=== PATIENT | female | born 1960 | race Caucasian/White ===

== ENCOUNTER 2018-01-25 13:35 | Emergency (ER) | payer OTHER ==
--- NOTE | 2018-01-25 14:02 | EDM.PDOC ---
ED HPI GENERAL MEDICAL PROBLEM - General Chief Complaint: Skin Complaint Stated Complaint: RASH ON BACK Time Seen by Provider: 01/25/18 13:37 - History of Present Illness INITIAL COMMENTS - FREE TEXT/NARRATIVE: HISTORY AND PHYSICAL: History of present illness: The patient is a 57-year-old female who follows at [facility] with Dr. Coto and presents with a history of being diagnosed with shingles this week and started on valacylovir and also given tramadol for pain at the [employer] and presents today with complaints of persistent pain as well as some new right earache and sore throat. Her rash is still active and there are no scabs and she St. is exquisitely painful and the tramadol is not helping. She has not had fever chills cough runny nose sore throat vomiting or diarrhea and denies . She states compliance with her antiviral medication. Review of systems: As per history of present illness and below otherwise all systems reviewed and negative. Past medical history: As per history of present illness and as reviewed below otherwise noncontributory. Surgical history: As per history of present illness and as reviewed below otherwise noncontributory. Social history: No reported history of drug or alcohol abuse. Family history: As per history of present illness and as reviewed below otherwise noncontributory. Physical exam: General: Well-developed well-nourished female who is nontoxic and vital signs are noted by me. HEENT: Atraumatic, normocephalic, negative for conjunctival pallor or scleral icterus, mucous membranes moist, throat slightly enlarged and reddened tonsils bilaterally and posterior oropharynx reddened with some punctate exudates seen right greater than left but uvula is midline, neck supple, nontender, trachea midline. TMs are slightly dull bilaterally and there is no evidence of any erythema discomfort with exam or mastoid tenderness. There is no cervical adenopathy or nuchal rigidity Lungs: Clear to auscultation, breath sounds equal bilaterally, chest nontender. Please see skin exam below. There is no wheezing or stridor Heart: S1S2, regular rate and rhythm no overt murmurs Abdomen: Soft, nondistended, nontender. NABS Pelvis: Deferred Genitourinary: Deferred. Rectal: Deferred. Extremities: Atraumatic full range of motion without defects or deficits Neurovascular unremarkable. Neuro: Awake, alert, oriented. Cranial nerves II through XII unremarkable. Cerebellum unremarkable. Motor and sensory unremarkable throughout. Exam nonfocal. Skin: At the anterior chest wall on the right as well is in the axillary area and in the right posterior scapular area there is a vesicular-like rash seen with an erythematous base follows dermatomes T1 and T2. It does not cross the midline is tender to palpation and there are no scabs seen. Diagnostics: Rapid strep Therapeutics: Patient drove here and needs to drive home so I will give her a prescription or different pain medications to try. Impression: Right chest wall zoster with persistent pain Definitive disposition and diagnosis as appropriate pending reevaluation and review of above Treatments RELATIONS LIAISON: Reports: NSAIDS skin rash Pain Score (Numeric/FACES): 8 - Related Data Allergies Allergy/AdvReac Type Severity Reaction Status Date / Time acetaminophen [From Percocet] Allergy Vomiting Verified 01/25/18 13:49 oxycodone [From Percocet] Allergy Vomiting Verified 01/25/18 13:49 Penicillins Allergy Rash Verified 01/25/18 13:49 Home Meds: Home Meds Famciclovir 1 tab PO TID 01/25/18 [History] Venlafaxine [Effexor XR] 1 tab PO DAILY 01/25/18 [History] traMADol HCl [Tramadol HCl] 1 tab PO Q8HR PRN 01/25/18 [History] Social & Family History - Tobacco Use Smoking Status *Q: Never Smoker - Recreational Drug Use Recreational Drug Use: No ED ROS GENERAL - Review of Systems Review Of Systems: ROS reveals no pertinent complaints other than HPI. ED EXAM, SKIN/RASH Exam: See Below (See dictation) Course - Vital Signs Last Recorded V/S: Last Vital Signs Temp 36.1 C 01/25/18 13:35 Pulse 100 01/25/18 13:35 Resp 18 01/25/18 13:35 BP 113/74 01/25/18 13:35 Pulse Ox 97 01/25/18 13:35 - Orders/Labs/Meds Orders: Active Orders 24 hr Category Date Time Status CULTURE STREP A CONFIRMATION [RM] Stat Lab 01/25/18 14:07 Results STREP SCRN A RAPID W CULT CONF [RM] Stat Lab 01/25/18 14:07 Ordered Departure - Departure Time of Disposition: 14:27 Disposition: Home, Self-Care 01 Condition: Good Clinical Impression: Acute pain associated with herpes zoster - Discharge Information Referrals: PCP,None [Primary Care Provider] - Forms: ED Department Discharge Additional Instructions: The following information is given to patients seen in the emergency department who are being discharged to home. This information is to outline your options for follow-up care. We provide all patients seen in our emergency department with a follow-up referral. The need for follow-up, as well as the timing and circumstances, are variable depending upon the specifics of your emergency department visit. If you don't have a primary care physician on staff, we will provide you with a referral. We always advise you to contact your personal physician following an emergency department visit to inform them of the circumstance of the visit and for follow-up with them and/or the need for any referrals to a consulting specialist. The emergency department will also refer you to a specialist when appropriate. This referral assures that you have the opportunity for followup care with a specialist. All of these measure are taken in an effort to provide you with optimal care, which includes your followup. Under all circumstances we always encourage you to contact your private physician who remains a resource for coordinating your care. When calling for followup care, please make the office aware that this follow-up is from your recent emergency room visit. If for any reason you are refused follow-up, please contact the [facility] emergency department at and ask to speak to the emergency department charge nurse. [address] [place] [address] Please contact your provider at [facility] for follow-up care and continue with your antiviral medication until it is finished. Remember to avoid small children the elderly and any women as well as anybody that has never been exposed to chickenpox until scabs are formed on your rash. You may continue using the tramadol you have or start the new medications given prescribed today. Please try the [place] and Valium you have been prescribed first and if they do not work then try the Neurontin. The pain will come and go until the rash is completely resolved. - My Orders Last 24 Hours: My Active Orders 01/25/18 14:07 CULTURE STREP A CONFIRMATION [] Stat STREP SCRN A RAPID W CULT CONF [RM] Stat - Assessment/Plan Last 24 Hours: My Active Orders 01/25/18 14:07 CULTURE STREP A CONFIRMATION [RM] Stat STREP SCRN A RAPID W CULT CONF [RM] Stat
== END 2018-01-25 14:35 | disposition home or self-care (01) ==
LOC: MW.ED 13:35
DX: B02.9 Zoster without complications (principal); R07.89 Other chest pain
CPT/HCPCS: 87081; 87880-QW; 99283